=== PATIENT | male | born 1965 | race Two or more races ===

== ENCOUNTER → 2024-02-26 | Outpatient (BNVA) | payer MEDICAID, SELFPAY | END | disposition home or self-care (01) | PROVIDERS: PCP Family Medicine; Referring Provider Family Medicine; Visit Provider Urology | DX: N40.1 Benign prostatic hyperplasia with lower urinary tract symptoms (principal); N13.8 Other obstructive and reflux uropathy; N13.2 Hydronephrosis with renal and ureteral calculous obstruction; I10 Essential (primary) hypertension; E11.9 Type 2 diabetes mellitus without complications; E66.9 Obesity, unspecified; Z68.29 Body mass index [BMI] 29.0-29.9, adult | CPT/HCPCS: 81003; 99202; G0463 ==

== ENCOUNTER → 2024-03-19 | Outpatient (CLI) | payer MEDICAID, SELFPAY ==
--- NOTE | 2024-03-19 13:30 | XR_ITS ---
Examination: CT abdomen and pelvis without contrast. Coronal 3-D reconstructions. Sagittal 2-D reconstructions. Date and time of exam:March 19, 2024 1341 hours INDICATIONS: Microscopic hematuria one year CTDI: vol (mGy): 8.54 DLP: (mGycm): 488 Technique: Axial images of the abdomen have been obtained, 3 mm slice thickness Intravenous contrast material has not been administered. Low dose protocols were performed. One or more of the following dose reduction techniques were used; automated exposure control, adjustment of the mA and/or KV according to patient size, use of iterative reconstruction technique. Findings: Diffuse fatty infiltration throughout the liver No gallstones Spleen is not enlarged No pancreatic or adrenal mass Multiple left renal calculi, including 8mm calculus upper pole left kidney and 32 mm staghorn calculus lower pole calyces left kidney 8mm calculus posterior right kidney 5.7 cm lower pole left renal cyst No hydronephrosis or ureteral calculi Normal appendix No bowel obstruction Urinary bladder wall thickened up to 4 mm Transverse prostate dimension 4.2 cm Moderate lumbar spondylosis IMPRESSION: Multiple bilateral renal calculi including 32 mm staghorn calculus lower pole calyces left kidney No hydronephrosis or ureteral calculi
== END | disposition home or self-care (01) ==
LOC: CCTX 12:53
PROVIDERS: PCP Family Medicine; Referring Provider Urology; Visit Provider Urology
DX: N20.0 Calculus of kidney (principal)
CPT/HCPCS: 74176

== ENCOUNTER → 2024-03-26 | Outpatient (BNVA) | payer MEDICAID, SELFPAY | END | disposition home or self-care (01) | PROVIDERS: PCP Family Medicine; Referring Provider Family Medicine; Visit Provider Urology | DX: N40.1 Benign prostatic hyperplasia with lower urinary tract symptoms (principal); N13.8 Other obstructive and reflux uropathy; N20.0 Calculus of kidney; E11.9 Type 2 diabetes mellitus without complications; I10 Essential (primary) hypertension; E66.9 Obesity, unspecified; Z68.29 Body mass index [BMI] 29.0-29.9, adult | CPT/HCPCS: 81003; 99212; G0463 ==

== ENCOUNTER → 2024-04-01 | Outpatient (BNVA) | payer MEDICAID, SELFPAY | END | disposition home or self-care (01) | PROVIDERS: PCP Family Medicine; Referring Provider Family Medicine; Visit Provider Urology | DX: N40.1 Benign prostatic hyperplasia with lower urinary tract symptoms (principal); R39.12 Poor urinary stream | CPT/HCPCS: 51741; 51798 ==

== ENCOUNTER → 2024-04-20 | Outpatient (BNVA) | payer MEDICAID, SELFPAY | END | disposition home or self-care (01) | PROVIDERS: PCP Family Medicine; Referring Provider Family Medicine; Visit Provider Urology | DX: N40.1 Benign prostatic hyperplasia with lower urinary tract symptoms (principal); N13.8 Other obstructive and reflux uropathy | CPT/HCPCS: 76872 ==

== ENCOUNTER → 2024-04-28 | Outpatient (CLI) | payer MEDICAID, SELFPAY ==
--- NOTE | 2024-04-28 13:00 | XR_ITS ---
Examination: Nuclear medicine kidney imaging flow and function multiple studies Exam date and time: 2024 1319 hrs. Indications: Hypertension, type 2 diabetes, renal insufficiency on laboratory examination this month Technique And Findings: Intravenous ministration 10.3 mCi technetium 99m MAG3 Flow and function curves generated to 60 minutes Normal flow and function right kidney Increased flow to the left kidney, 60% of the following the right kidney with adequate renal function Impression: Normal flow and function right kidney Adequate function left kidney
== END | disposition home or self-care (01) ==
PROVIDERS: PCP Urology; Referring Provider Urology; Visit Provider Urology
DX: N20.0 Calculus of kidney (principal)
CPT/HCPCS: 78709; A9562

== ENCOUNTER → 2024-06-22 | Outpatient (BNVA) | payer MEDICAID, SELFPAY | END | disposition home or self-care (01) | PROVIDERS: PCP Family Medicine; Referring Provider Family Medicine; Visit Provider Urology | DX: N40.1 Benign prostatic hyperplasia with lower urinary tract symptoms (principal); N13.8 Other obstructive and reflux uropathy; N20.0 Calculus of kidney; E66.9 Obesity, unspecified; Z68.28 Body mass index [BMI] 28.0-28.9, adult; E11.9 Type 2 diabetes mellitus without complications; I10 Essential (primary) hypertension | CPT/HCPCS: 81003; 99212; G0463 ==

== ENCOUNTER → 2024-08-30 | Outpatient (BNVA) | payer MEDICAID, SELFPAY | END | disposition home or self-care (01) | PROVIDERS: PCP Family Medicine; Referring Provider Family Medicine; Visit Provider Urology | DX: N40.1 Benign prostatic hyperplasia with lower urinary tract symptoms (principal); N13.8 Other obstructive and reflux uropathy; N20.0 Calculus of kidney; I10 Essential (primary) hypertension; E11.9 Type 2 diabetes mellitus without complications; E66.9 Obesity, unspecified; Z68.29 Body mass index [BMI] 29.0-29.9, adult; Z71.3 Dietary counseling and surveillance | CPT/HCPCS: 81003; 99212; G0463 ==

== ENCOUNTER 2024-09-29 08:25 | Day surgery (SDC) | payer MEDICAID, SELFPAY ==
[2024-09-28 07:39] VITALS: BMI 28.0
--- NOTE | 2024-09-28 10:59 | SUR.PREOP ---
Pt stated unable to come in to register, requested to have everything done the day of procedure. Interview done over the phone, Instructions to keep NPO after MN and to come in at 0800 tomorrow.
[2024-09-29] VITALS (9 sets, daily range): BP systolic 113–131; BP diastolic 74–93; PULSE 66–86; RESP 12–20; TEMP 36.3–37.1; O2SAT 97–100; BMI 29.1
--- NOTE | 2024-09-29 06:00 | EKG_ITS ---
[facility] Test Date: 2024-09-29 Pat Name: MY GARCIA Department: Room: - Gender: Male House Registry Rn: AARON : 1965 Requested By: Enrike Arora Order Number: [id number] Reading MD: Enrike Arora Measurements Intervals [place] Rate: 71 P: -12 CO: 163 QRS: 5 QRSD: 111 T: 1 QT: 383 QTc: 416 Interpretive Statements SINUS RHYTHM MODERATE INTRAVENTRICULAR CONDUCTION DELAY EARLY REPOLARIZATION No previous ECG available for comparison /[id number]/[email or web address]/[id number].pdf
[2024-09-29] MEDS: RINGERS LACTATED 1000 ML 1,000 ML 20 ML IV (09:27)
[2024-09-29 10:32] LABS: Alanine Aminotransferase 50 U/L (10-49); Albumin, Serum 4.8 gm/dL (3.5-5.0); Albumin/Globulin Ratio 2.2 (1.2-2.2); Alkaline Phosphatase 73 U/L (46-116); Anion Gap 9 (7-16); Aspartate Amino Transferase 32 U/L (0-34); BUN/Creatinine Ratio 14 Ratio (12-20); Bilirubin,Total 0.8 mg/dL (0.3-1.2); Blood Urea Nitrogen 13 mg/dL (9-23); Calcium 10.0 mg/dL (8.3-10.6); Calcium (Corrected) 10.0 mg/dL (8.5-10.1); Carbon Dioxide 27.1 mMol/L (20.0-31.0); Chloride 104 mMol/L (98-107); Creatinine (Component) 0.9 mg/dL (0.6-1.3); Estimated Creatinine Clearance 94.7 mL/min (>60); Globulin 2.2 gm/dL (2.3-3.5); Glucose 91 mg/dL (74-106); Osmolality,Calculated 279 (275-295); Potassium 3.7 mMol/L (3.4-5.1); Sodium 140 mMol/L (136-145); Total Protein 7.0 gm/dL (5.7-8.2); eGFR > 60 See Note
--- NOTE | 2024-09-29 11:00 | XR_ITS ---
Examination: Retrograde pyelogram with without KUB, left 6 spot fluoroscopic abdomen films Fluoroscopy Date and time: October 04, 2024 1327 hours INDICATIONS: Microscopic hematuria 1 year multiple renal calculi TECHNIQUE AND FINDINGS: 6 spot fluoroscopic abdomen films obtained Multiple left renal calculi Partial visualization left renal collecting system Left ureteral stent satisfactory position Fluoroscopy 35 seconds radiation dose 8.0678 milligray 6 spot fluoroscopic films IMPRESSION: Retrograde program as above
--- NOTE | 2024-09-29 13:28 | SUR.PHASEI ---
0382 telephone order received from Dr. Ga to have Duoneb breathing treatment- Albuterol/Ipratr arleth. 3ml x1 upon arrival to PACU, will place order in EMR and have medication awaiting for patient per anesthesia order
[2024-09-29] MEDS: ALBUTEROL/IPRATROPIUM (Duoneb) RT SOL 3 ML NEBU INH (13:30)
--- NOTE | 2024-09-29 13:30 | SUR.PHASEI ---
1330 Patient arrived to recovery resting comfortably in [facility], drowsy and talking with staff, upon arrival breathing treatment started per anesthesia order, on oxygen 10L via oxy mask, upon auscultation patient wheezing, vital signs stable, denies pain and nausea, report received from Spencer CARLSON and Dr. Ga
--- NOTE | 2024-09-29 13:33 | ESOP_ITS ---
Date of Procedure 09/29/24 Pre Op Diagnosis BPH with urinary obstruction and LUTS, staghorn calculus lower pole left kidney Post Op Diagnosis Same Procedure Cystoscopic examination left retrograde pyelogram left ureteroscopy placement of left ureteral stent in a retrograde fashion Findings Tight ureter not accommodative, staghorn calculi left kidney Procedure Description This is a 58-year-old gentleman this patient was seen in urology office he has stone bilateral large stone was on the left side with 3.2 cm lower pole and there were small stones in the kidney as well. He was recommended above procedure procedure and complications were discussed with the patient in great detail informed consent is obtained patient understood this is going to be a staged procedure. Patient was brought to the operating room in a satisfactory condition after appropriate premedication he was appropriately identified by surgeon and operating room staff. Site scope and indication of the procedure were reconfirmed with the patient. Patient was positioned in the operating table in a supine position. General anesthesia was given uneventfully. Parts were prepped and draped in the usual sterile fashion. 2% lidocaine was instilled into the urethra at this time patient received a perioperative antibiotics 20 mg of Lasix was given IV for diuresis as well as for prevention of infectious pyelocalyceal reflux complications 21 cystoscope was introduced into the bladder per urethra examination of anterior urethra was without any stricture. Prostatic urethra revealed obstructive bilateral prostate lobes and a large median bar. Inside of the bladder and all the quadrant was carried out there was no tumor stone or diverticula identified. I identified the left ureteral orifice passed the open- ended Pollick catheter and through the catheter I placed a safety wire into the upper pole calyx. Next cystoscope was withdrawn gently I used the semirigid ureteroscope for passive dilation ureter was not accommodating. Retrograde pyelogram was performed there was no ureteral stone identified. This was done under fluoroscopic examination. Next ureteroscope was removed over the safety wire I placed 28 cm long 6 Stateless double-J stent proximal and in the upper pole calyx distal in the bladder bladder was emptied instrument was withdrawn gently patient after having tolerated the procedure well was sent to recovery room in a satisfactory condition he will be discharged home and he will be scheduled for second stage left RIR Anesthesia GETA Pathology / specimen None Estimated Blood Loss 0.2 Condition Stable Disposition PACU Surgeon Libby Pepe MD Surgical Staff Operation Date: 09/29/24 11:15 Case Staff Anesthesiologist: Christoph Ga
--- NOTE | 2024-09-29 13:53 | SUR.PHASEI ---
9293 breathing treatment complete, upon auscultation lung clear
--- NOTE | 2024-09-29 15:01 | SUR.PHASEII ---
1501 Patient meets discharge criteria from recovery, awake and alert, breathing unlabored, vital signs stable, denies pain, voided in urine x2, no stones noted, tolerating fluids well, able to dress himself into his clothing, discharge instructions given to patient and patient friend, friend signed discharge instructions. Patient given all his belongings prior to discharge, transported via wheelchair and left in a private vehicle
== END 2024-09-29 15:01 | disposition home or self-care (01) ==
PROVIDERS: Anesthesiology; PCP Family Medicine; Referring Provider Urology; Visit Provider Urology
PROC: 0TJB8ZZ Inspection of Bladder, Via Natural or Artificial Opening Endoscopic (ICD-10-PCS; CPT 52000; principal; 2024-09-29 11:00)
DX: N20.0 Calculus of kidney (principal); N40.1 Benign prostatic hyperplasia with lower urinary tract symptoms; N13.8 Other obstructive and reflux uropathy; I10 Essential (primary) hypertension; E11.9 Type 2 diabetes mellitus without complications; E66.9 Obesity, unspecified; Z68.29 Body mass index [BMI] 29.0-29.9, adult
CPT/HCPCS: 52332; 52351; 36415; 74420; 80053; 93005; A4217; A4649; C1769; C1894; C2617; J0131; J1100; J1580; J1885; J1938; J2250; J2371; J2405; J2704; J3010; J3490; J7120; A9270

== ENCOUNTER 2024-10-14 07:25 | Day surgery (SDC) | payer MEDICAID, SELFPAY ==
[2024-10-12 08:31] VITALS: BMI 28.9
[2024-10-12 11:06] LABS: Alanine Aminotransferase 28 U/L (10-49); Albumin, Serum 4.6 gm/dL (3.5-5.0); Albumin/Globulin Ratio 2.0 (1.2-2.2); Alkaline Phosphatase 102 U/L (46-116); Anion Gap 13 (7-16); Aspartate Amino Transferase 21 U/L (0-34); BUN/Creatinine Ratio 14 Ratio (12-20); Bilirubin,Total 0.5 mg/dL (0.3-1.2); Blood Urea Nitrogen 13 mg/dL (9-23); Calcium 10.1 mg/dL (8.3-10.6); Calcium (Corrected) 10.1 mg/dL (8.5-10.1); Carbon Dioxide 26.2 mMol/L (20.0-31.0); Chloride 103 mMol/L (98-107); Creatinine (Component) 0.9 mg/dL (0.6-1.3); Estimated Creatinine Clearance 94.4 mL/min (>60); Globulin 2.3 gm/dL (2.3-3.5); Glucose 155 mg/dL (74-106); Osmolality,Calculated 286 (275-295); Potassium 3.8 mMol/L (3.4-5.1); Sodium 142 mMol/L (136-145); Total Protein 6.9 gm/dL (5.7-8.2); eGFR > 60 See Note
--- NOTE | 2024-10-13 15:20 | SUR.PREOP ---
Pt notified to come in tomorrow at 0730 for surgery.
[2024-10-14] VITALS (8 sets, daily range): BP systolic 113–134; BP diastolic 78–93; PULSE 67–78; RESP 13–18; TEMP 36.3–36.6; O2SAT 96–100; BMI 29.3
[2024-10-14] MEDS: RINGERS LACTATED 1000 ML 1,000 ML 20 ML IV (08:37)
[2024-10-14] MEDS: VANCOMYCIN/WATER 1GM IVPB 200 ML IV (08:38)
--- NOTE | 2024-10-14 09:45 | XR_ITS ---
Examination: Retrograde pyelogram left with without KUB Fluoroscopy 8 spot fluoroscopic films of the abdomen Date and time: October 14, 2024, 12 noon, comparison September 29, 2024 Indications: Ureteral stent placement laser lithotripsy, microscopic hematuria history with multiple renal calculi Technique And Findings: 8 spot fluoroscopic films of the abdomen, opacification of nondilated left renal calyces Final films demonstrate satisfactory position urinary Fluoroscopy 39 seconds radiation dose 8.37 milligray Impression: Retrograde program as above
--- NOTE | 2024-10-14 12:06 | SUR.PHASEI ---
pt received from OR in recovery bay 4. pt obtunded, breathing unlabored on oxymask 8l, oral airway in place. v/s stable. report received from Spencer CARLSON and Dr. Ga.
--- NOTE | 2024-10-14 12:16 | SUR.PHASEI ---
pt lying in gurney with eyes closed, breathing unlabored, VS stable, report from Donald CARLSON
--- NOTE | 2024-10-14 12:20 | SUR.PHASEI ---
pt tolerating ice chips without difficulty swallowing or n/v
--- NOTE | 2024-10-14 12:49 | SUR.PHASEII ---
report to Donald CARLSON
--- NOTE | 2024-10-14 13:21 | SUR.PHASEII ---
pt awake and alert, breathing unlabored on room air. v/s stable. pt able to ambulate to wheelchair with steady gait. d/c instructions given with friend Kierra and pt, all questions answered. pt d/c via wheelchair with all belongings.
--- NOTE | 2024-10-14 15:46 | ESOP_ITS ---
RE: MY GARCIA : 1965 DATE OF OPERATION: 10/14/2024 PREPROCEDURE DIAGNOSES: Multiple left renal stones measuring 1.7 cm in the renal pelvis and multiple calyceal stones measuring between 4 and 7 mm, Hounsfield units between 1400 and 1600. Indwelling ureteral stent in place. POSTPROCEDURE DIAGNOSIS: Status post retrograde intrarenal surgery with laser stone fragmentation and vaporization, left. PROCEDURE PERFORMED: Fluoroscopic imaging of upper urinary tract; cystoscopy; retrograde pyelogram under fluoroscopic control, left; retrograde intrarenal surgery with laser stone fragmentation and vaporization, left; and placement of indwelling ureteral stent left. SURGEON: Zeke Hackett MD [employer] ARCHITECT SURGEON: Libby Pepe MD ANESTHESIA: General. INDICATIONS: This patient is a 58-year-old gentleman who comes for treatment of complex left renal stone disease. The patient has multiple left renal stones of an aggregate stone size of approximately 3 cm, Hounsfield units of the stones are between 1400 and 1600. The patient has an indwelling ureteral stent in place. We discussed with the patient again the indication of treatment along with risks, benefits, and alternatives of different renal modalities and appropriate consent for retrograde intrarenal surgery is obtained. DESCRIPTION OF FINDINGS: Fluoroscopically, the stones cannot be readily identified as there is a lot of gas overlying the shadow of the kidney. The stent appears to be in correct position. Endoscopically, urethra is unremarkable. Prostate is enlarged, shows some mild oozing as there is also some oozing from the bladder neck secondary to the presence of the ureteral stent. Retrograde pyelogram shows a mildly distended renal collecting system. The ureter appears to be of normal caliber. After placement of a ureteral access sheath, retrograde intrarenal surgery was performed. Of note, the stone responds not as usually to the laser energy, the laser fibers burnt down rather quickly, so that complete fragmentation of the stones utilizing this particular laser with this particular fiber type will not be successful and different treatment approach needs to be considered. DESCRIPTION OF PROCEDURE: Prior to initiation of anesthesia, the patient is appropriately identified by the surgeon and operating room personnel. The indication for surgery, site, and scope of surgery are reconfirmed with the patient. The patient received preoperative antibiotics intravenously. After induction of general anesthesia, the patient was positioned on the endoscopy table in the lithotomy position. The outer genitalia was prepped and draped in a sterile fashion. Cystoscopy was performed using a 21-Icelandic instrument. This shows the aforementioned findings. A 5-Icelandic angiographic catheter was introduced into the left ureteral orifice over a guidewire. Under fluoroscopic control, the guidewire was advanced up into the kidney to serve as a safety wire. At this point, the patient received 20 mg of Lasix intravenously to reduce diuresis and reduce the risk of pyelovenous reflux and infectious complications. Next, the indwelling stent was removed and checked for completeness. Following this, a flexible digital ureteroscope was advanced into the ureter alongside the safety wire. The course of the ureter was traversed under endoscopic control without evidence for abnormalities. Injection of contrast shows the aforementioned findings. In the kidney, the central stone is readily identified. Ureteral access sheath is utilized and then stone fragmentation initially with vaporization energy level is performed. Of note, laser fibers are burning down rapidly and energy is changed to fragmentation which likewise does not improve the durability of the laser fiber. After four fibers were utilized, the majority of the central 1.7 cm stone can be fragmented, but given slow progress and also the short durability of the laser fibers we need to consider a different approach for treatment of the remainder of the stone material. Contrast was again injected confirming the integrity of the upper urinary tract and indwelling stent was placed over the safety wire and under fluoroscopic and endoscopic control, it was positioned correctly in kidney and bladder. The patient is awakened and returned to recovery where he arrived in satisfactory condition. ESTIMATED BLOOD LOSS: Minimal. COMPLICATIONS: None. SPECIMENS: None obtained. DISPOSITION: The patient will be discharged to home from the outpatient surgical area. Plans will be made to bring the patient back in a couple of weeks' time where with the different laser technology and fiber to complete his treatment. DT: 12:24:29 TT: 15:21:00 Ref: [id number] - TID: [id number] MTDD
== END 2024-10-14 13:21 | disposition home or self-care (01) ==
PROVIDERS: Anesthesiology; PCP Family Medicine; Referring Provider Specialist; Visit Provider Urology
PROC: 0TJB8ZZ Inspection of Bladder, Via Natural or Artificial Opening Endoscopic (ICD-10-PCS; CPT 52000; principal; 2024-10-14 09:45)
DX: N20.0 Calculus of kidney (principal); N40.1 Benign prostatic hyperplasia with lower urinary tract symptoms; N13.8 Other obstructive and reflux uropathy; I10 Essential (primary) hypertension; E11.9 Type 2 diabetes mellitus without complications; E66.9 Obesity, unspecified; Z68.29 Body mass index [BMI] 29.0-29.9, adult
CPT/HCPCS: 52356; 36415; 74420; 80053; A4217; A4314; A4649; C1769; C1889; C1894; C2617; J1100; J1580; J1885; J1938; J2250; J2405; J2704; J3010; J3375; J3490; J7120; C1893

== ENCOUNTER → 2024-11-26 | Outpatient (BNVA) | payer MEDICAID, SELFPAY | END | disposition home or self-care (01) | PROVIDERS: PCP Family Medicine; Referring Provider Family Medicine; Visit Provider Urology | DX: N20.0 Calculus of kidney (principal); N40.1 Benign prostatic hyperplasia with lower urinary tract symptoms; N13.8 Other obstructive and reflux uropathy; Z87.442 Personal history of urinary calculi; E11.9 Type 2 diabetes mellitus without complications; I10 Essential (primary) hypertension; E66.9 Obesity, unspecified; Z68.28 Body mass index [BMI] 28.0-28.9, adult | CPT/HCPCS: 81003; 99212; G0463 ==

== ENCOUNTER → 2024-12-06 | Outpatient (CLI) | payer MEDICAID, SELFPAY ==
--- NOTE | 2024-12-06 09:39 | XR_ITS ---
Examination: CT abdomen with intravenous contrast CT pelvis with intravenous contrast 2-D coronal reconstructions 2-D sagittal reconstructions Date and time of exam: December 06, 2024, 1025 hours, comparison March 19, 2024 INDICATIONS: Bilateral flank pain difficulty urinating beginning 1 month ago, history kidney stones. CTDI: vol (mGy) 16.4 DLP: (mGycm) 1050 Technique: Multiple axial sections of the abdomen and pelvis have been obtained. 64 slice high-resolution scanner used. 3 mm axial sections have been obtained, post intravenous injection 60 cc Isovue 370 2-D sagittal, coronal reconstructions obtained. Low dose protocols were performed. One or more of the following dose reduction techniques were used; automated exposure control, adjustment of the mA and/or KV according to patient size, use of iterative reconstruction technique. Findings: No visualized liver or splenic lesion No gallstones No pancreatic or adrenal mass Multiple bilateral renal calculi, the largest right kidney 7 mm, largest left kidney staghorn calculi lower pole calyx 18 mm Mild left hydronephrosis Left ureteral stent in satisfactory position 5 mm calculus adjacent to the upper portion of the left ureteral stent Complex septated lower pole left renal cyst, 6.7 cm Normal appendix Aorta normal size No diverticulitis AP prostate dimension 4.6 cm Prominent osteopenia IMPRESSION: Bilateral renal calculi as above Left ureteral stent in satisfactory position, mild left hydronephrosis Complex septated lower pole left renal cyst 6.7 cm
[2024-12-06 09:41] LABS: Anion Gap 10 (7-16); BUN/Creatinine Ratio 20 Ratio (12-20); Blood Urea Nitrogen 16 mg/dL (9-23); Calcium 9.5 mg/dL (8.3-10.6); Carbon Dioxide 27.5 mMol/L (20.0-31.0); Chloride 104 mMol/L (98-107); Creatinine (Component) 0.8 mg/dL (0.6-1.3); Glucose 121 mg/dL (74-106); Osmolality,Calculated 283 (275-295); Potassium 4.4 mMol/L (3.4-5.1); Sodium 141 mMol/L (136-145); eGFR > 60 See Note
== END | disposition home or self-care (01) ==
LOC: SLAB 09:03
PROVIDERS: PCP Family Medicine; Referring Provider Urology; Visit Provider Radiology Diagnostic Radiology
DX: N20.0 Calculus of kidney (principal); Z96.0 Presence of urogenital implants; N28.1 Cyst of kidney, acquired
CPT/HCPCS: 36415; 74177; 80048; A4649; Q9967

== ENCOUNTER 2024-12-16 05:40 | Day surgery (SDC) | payer MEDICAID, SELFPAY ==
[2024-12-15 11:57] VITALS: BMI 29.1
[2024-12-15 13:36] LABS: Alanine Aminotransferase 27 U/L (10-49); Albumin, Serum 5.0 gm/dL (3.4-4.8); Albumin/Globulin Ratio 2.3 (1.2-2.2); Alkaline Phosphatase 125 U/L (46-116); Anion Gap 13 (7-16); Aspartate Amino Transferase 24 U/L (0-34); BUN/Creatinine Ratio 11 Ratio (12-20); Bilirubin,Total 0.6 mg/dL (0.3-1.2); Blood Urea Nitrogen 11 mg/dL (9-23); Calcium 10.3 mg/dL (8.3-10.6); Calcium (Corrected) 10.3 mg/dL (8.5-10.1); Carbon Dioxide 25.5 mMol/L (20.0-31.0); Chloride 105 mMol/L (98-107); Creatinine (Component) 1.0 mg/dL (0.6-1.3); Estimated Creatinine Clearance 81.6 mL/min (>60); Globulin 2.2 gm/dL (2.3-3.5); Glucose 178 mg/dL (74-106); Osmolality,Calculated 288 (275-295); Potassium 4.1 mMol/L (3.4-5.1); Sodium 143 mMol/L (136-145); Total Protein 7.2 gm/dL (5.7-8.2); eGFR > 60 See Note
[2024-12-16] VITALS (10 sets, daily range): BP systolic 97–123; BP diastolic 61–83; PULSE 62–80; RESP 14–19; TEMP 36.4–36.8; O2SAT 97–100; BMI 29.5
[2024-12-16] MEDS: VANCOMYCIN/NS 1 GM IVPB 200 ML IV (06:16)
[2024-12-16] MEDS: RINGERS LACTATED 1000 ML 1,000 ML 20 ML IV (06:16)
--- NOTE | 2024-12-16 08:09 | XR_ITS ---
EXAMINATION: Retrograde pyelogram left with without KUB Fluoroscopy 3 spot fluoroscopic abdomen films INDICATIONS: History bilateral flank pain difficulty urinating 1 month, left ureteral stent satisfactory position on CT stone study December 06, 2024 Date and time: December 16, 2024, 0921 hours TECHNIQUE AND FINDINGS: 3. Spot fluoroscopic abdomen films Multiple left renal calculi Partial visualization left ureteral stent satisfactory position Fluoroscopy 113 seconds 3 spot fluoroscopic films IMPRESSION: Retrograde pyelogram as above
--- NOTE | 2024-12-16 11:46 | SUR.PHASEI ---
1118: Pt received in [facility] via [facility]. Report from Isabelle CARLSON and Dr. Ann. Oral airway in place. Resp even, unlabored. VS stable. Gonzalez to gravity draining clear red urine. 1123: Pt responsive. Oral airway dc'd. Resp even, unlabored.
--- NOTE | 2024-12-16 11:58 | SUR.PHASEI ---
1158: Pt more alert. Resp even, unlabored. VS stable. Gonzalez continues to drain clear red urine. No c/o pain.
--- NOTE | 2024-12-16 12:11 | ESOP_ITS ---
RE: MY GARCIA : 1965 DATE OF OPERATION: 12/16/2024 PREPROCEDURE DIAGNOSIS: Residual ureteral stone gravel, residual renal stone, left and indwelling ureteral stent, left. POSTPROCEDURE DIAGNOSIS: Status post ureteroscopic surgery and retrograde intrarenal surgery, left. PROCEDURE PERFORMED: Fluoroscopic imaging of upper urinary tract; cystoscopy; retrograde pyelogram under fluoroscopic control, left; placement of safety wire; removal of ureteral stent; ureteroscopic surgery with stone basketing x 30 plus and ureteroscopic laser stone fragmentation; retrograde intrarenal surgery with laser stone fragmentation and stone basketing x 20 plus; placement of indwelling ureteral stent, left. SURGEON: Zeke Hackett MD. INSTRUMENT SETTER SURGEON: Libby Pepe MD. ANESTHESIA: General. INDICATIONS: This patient is a 59-year-old gentleman who comes for continuation of treatment of complex left renal stone disease. At this point, the patient retains stone material in the ureter, which has been fragmented in a previous treatment session as well as tightly impacted stone material in 3 calyces of the lower pole. Treatment plan is to treat the residual stone material in the ureter, reassess the kidney and decide for either continuation of retrograde intrarenal surgery to continue and complete treatment of obstructing stone material or to convert to percutaneous surgery to also treat the nonobstructing impacted lower pole stone component. This was discussed with the patient in detail along with risks, benefits, and alternatives and appropriate consent was obtained. DESCRIPTION OF FINDINGS: Fluoroscopically, the indwelling stent is seen in the correct position. Stone material is noted alongside the stent, especially in the mid and upper ureter. Untreated stones such as the impacted lower pole stones are unchanged. Cystoscopy shows a normal urethra. Prostate is moderately enlarged with a well-developed median lobe. Retrograde pyelogram shows moderate distention of the renal collecting system. Endoscopic evaluation of the ureter shows more than 30 small stone pieces, most of which can be removed directly with stone basketing and some slightly too large are fragmented with laser as necessary to allow for safe basket removal. The ureter is cleared of all stone material. Following this, endoscopic evaluation of the kidney is performed. There is some fragmented stone material that has not passed yet and the impacted stones in the lower pole appear to be unchanged. At this point, there is no evidence for any obstructing stone material, so the intraoperative treatment decision is made to not treat the tightly impacted lower pole stones without hydronephrosis as they likely will not become an issue in this patient who has been asymptomatic as far as infections go. The residual stone material in the renal pelvis is fragmented as necessary for basket removal. More than 30 passages with baskets are performed to clear out all freed stone material in the renal collecting system. A new stent was placed. DESCRIPTION OF PROCEDURE: Prior to initiation of anesthesia, the patient was appropriately identified by the surgeon and the operating room personnel. The indication for surgery, site, and scope of surgery were reconfirmed with the patient. The patient received preoperative antibiotics intravenously. After induction of general anesthesia, the patient was positioned on the endoscopy table in the lithotomy position. The outer genitalia was prepped and draped in a sterile fashion. Cystoscopy was performed using a 21-Vietnamese instrument. It shows the aforementioned findings. A 5-Vietnamese angiographic catheter was introduced into the left ureteral orifice over a guidewire. A hydrophilic guidewire was utilized as the ureter is obstructed with stone material. The hydrophilic tipped wire can be advanced up into the kidney to serve as a safety wire. At this point, the patient received 20 mg of Lasix intravenously to induce diuresis and reduce the risk of pyelovenous reflux and infectious complications during the surgical procedure in the kidney. Next, the indwelling stent was removed and checked for completeness. Following this, a semi-rigid ureteroscope was advanced into the ureter. The ureter is very edematous. Stone material is encountered in the mid ureter where it is removed with stone basketing. Higher up, more stone material in the proximal ureter is encountered, some of which is slightly too large for safe removal. Therefore, it is fragmented with laser before basket removal is safely performed. At present, more than 30 passages with stone baskets are performed to clear out all the material from the entire ureter. Next, evaluation of the renal collecting system is performed with the intraoperative decision not to convert to percutaneous surgery as the impacted lower pole stones technically are not symptomatic and likely will not become an issue. To treat the residual stone material in the kidney, a ureteral access sheath was utilized. Then stone material is removed with stone basketing. Stone particles too large for safe basket removal are fragmented with laser energy. Again, all stone material larger than 2 mm can be actively removed with a stone basket. Smaller stone material is removed with suction and irrigation. At the conclusion of the procedure, contrast was again injected confirming the integrity of the left upper urinary tract and an indwelling stent was placed over a safety wire and under fluoroscopic and endoscopic control, position correct in the kidney and bladder. The bladder was emptied. The patient was awakened and returned to the recovery room in satisfactory condition. ESTIMATED BLOOD LOSS: Minimal. COMPLICATIONS: None. SPECIMENS: Stone material for chemical analysis. DISPOSITION: The patient will be discharged home from the outpatient surgical area. The plan is for the patient to return in about 2 weeks' time to the urology office for possible stent removal. DT: 11:29:24 TT: 12:09:00 Ref: [id number] - TID: [id number] MTDWander
--- NOTE | 2024-12-16 14:19 | SUR.PHASEII ---
1230: Pt resting with no complaints voiced. VS stable. Pt sitting up tolerating po fluids and jello with no difficulty swallowing and no n/v. 1245: Gonzalez catheter dc'd per Dr. Ho. Pt tolerated procedure with no complaints voiced. 1310: Pt fully awake, oriented x3. VS stable. Pt dressed. Assisted to restroom to void. Urine pale pink. Ambulation steady. Pt and friend stated understanding of discharge instructions with assistance from hospital official court interpreter. Pt discharged from [facility] in stable condition.
[2024-12-27 17:49] LABS: Stone Analysis Source KIDNEY
[2024-12-29 07:35] LABS: Stone Analysis Weight 0.084 g
== END 2024-12-16 13:10 | disposition home or self-care (01) ==
PROVIDERS: Anesthesiology; Specialist; PCP Family Medicine; Referring Provider Urology; Visit Provider Urology
PROC: 0TJ98ZZ Inspection of Ureter, Via Natural or Artificial Opening Endoscopic (ICD-10-PCS; CPT 52351; 2024-12-16 07:30)
DX: N20.2 Calculus of kidney with calculus of ureter (principal)
CPT/HCPCS: 52356; 36415; 74420; 80053; 82365; A4217; A4314; A4649; C1769; C1889; C1894; C2617; J1100; J1580; J1885; J2250; J2371; J2405; J2704; J3010; J3373; J3490; J7120; A4646; A9270; C1893

== ENCOUNTER → 2025-01-21 | Outpatient (BNVA) | payer MEDICAID, SELFPAY | END | disposition home or self-care (01) | PROVIDERS: PCP Family Medicine; Referring Provider Family Medicine; Visit Provider Urology | DX: N32.89 Other specified disorders of bladder (principal); Z96.0 Presence of urogenital implants; I10 Essential (primary) hypertension | CPT/HCPCS: 52310; 81003; 96372; A4217; A4649; C1894; J1580; A9270 ==